=== PATIENT | female | born 1990 | race Caucasian/White ===

== ENCOUNTER 2020-08-19 18:11 | Emergency (ER) | payer SELFPAY ==
[~2020-08-19] VITALS: Ht 170.2 cm; Wt 65.9 kg
[2020-08-19 18:26] VITALS: BP 152/94
[2020-08-19] MEDS ORDERED: LIDOCAINE 1%/EPI 1:100,000 20 ML VIAL. SQ ONE (19:00)
[2020-08-19] MEDS ORDERED: 0.9 % SOD CHL for STERILE FIELD 10 ML DISP.SYRIN. ONE (19:13)
[2020-08-19] MEDS ORDERED: HYDROcodone/APAP 5/325MG 1 TAB TABLET ONE (19:14)
[2020-08-19] MEDS ORDERED: traMADol 50 MG TABLET ONE (19:19)
[2020-08-19] MEDS ORDERED: TRAM50TA PO (19:34)
[2020-08-19] MEDS ORDERED: CLIN150C14 PO (19:34)
--- NOTE | 2020-08-19 19:35 | ED.ADGEN ---
Past Medical History Past Medical History: Other Additional Past Medical Histor: Hidradenitis Suppurativa Past Surgical History: No Surgical History Smoking Status: Current Every Day Smoker Alcohol Use: None General Adult EDM: Chief Complaint: ABSCESS HPI: HPI: Patient is a 30 year old female who presents to the emergency department with complaints of an abscess to her right side for the last week. She also complains of a scabbed lesion to her chin. She reports that the area below her right axilla is hot and tender to touch. She states that it has been oozing some bloody pus today. She denies any fever, cough, nausea, vomiting, diarrhea, or shortness of breath. She currently rates her pain a 10 out of 10 on the pain scale, She denies any alleviating factors the pain is worse with palpation. Review of Systems: Review of Systems: Complete ROS is negative unless otherwise noted in HPI. Current Medications: Current Medications Medications (Trade) Dose Ordered Sig/Vijaya Start Time Stop Time Status Last Admin Dose Admin Acetaminophen/ Hydrocodone Bitart (Lortab 5/325) 1 tab 1X ONCE 08/19/20 19:45 08/19/20 19:46 DC Lidocaine/ Epinephrine (LIDOCAINE 1%-EPI 1:100,000 Multi-Dose) 20 ml 1X ONCE 08/19/20 19:00 08/19/20 19:01 DC 08/19/20 18:54 20 ML Sodium Chloride (NORMAL SALINE FLUSH for STERILE FIELD) 20 ml 1X ONCE 08/19/20 19:45 08/19/20 19:46 DC 08/19/20 19:41 20 ML Tramadol HCl (Ultram) 50 mg 1X ONCE 08/19/20 19:45 08/19/20 19:46 DC 08/19/20 19:40 50 MG Allergies: Allergies: Allergies Coded Allergies Type Severity Reaction Last Updated Verified hydrocodone Allergy Intermediate Hives/vomiting 08/19/20 Yes Physical Exam: PE: See Above Constitutional: Well developed, well nourished, no acute distress, non-toxic appearance. [] HENT: Normocephalic, atraumatic, bilateral external ears normal, nose normal. [] Eyes: PERRLA, EOMI, conjunctiva normal, no discharge. [] Neck: Normal range of motion, no stridor. [] Cardiovascular:Heart rate regular rhythm Lungs & Thorax: Respirations even and unlabored, no retractions, no respiratory distress Skin: Warm, dry; 9 cm tender area of erythema, and warmth noted below right axilla with 0.5 cm pustule centrally, consistent with abscess and cellulitis; honey crusted lesion to patient's chin consistent with impetigo. Extremities: No cyanosis, ROM intact, no edema. [] Neurologic: Alert and oriented X 3, no focal deficits noted. [] Psychologic: Affect normal, judgement normal, mood normal. [] Current Patient Data: Vital Signs: Vital Signs Date Time Temp Pulse Resp B/P (MAP) Pulse Ox O2 Delivery O2 Flow Rate FiO2 08/19/20 19:40 22 Room Air 08/19/20 18:26 98.4 94 152/94 (113) 100 98.4 EKG: EKG: [] Heart Score: Risk Factors: Risk Factors: DM, Current or recent (<one month) smoker, HTN, HLP, family history of CAD, obesity. Risk Scores: Score 0 - 3: 2.5% MACE over next 6 weeks - Discharge Home Score 4 - 6: 20.3% MACE over next 6 weeks - Admit for Clinical Observation Score 7 - 10: 72.7% MACE over next 6 weeks - Early Invasive Strategies Radiology/Procedures: Radiology/Procedures: Indication: abscess Procedure: The patient was positioned appropriately. Local anesthesia was 1% lidocaine with epi. An incision was then made over the apex of the lesion and moderate amount of bloody pus material was expressed. The drainage cavity was irrigated with 20 mL of NS and packed with iodoform gauze. The patients tetanus status was up-to-date. The patient tolerated the procedure well. Complications: none, minimal blood loss Course & Med Decision Making: Course & Med Decision Making Pertinent Labs and Imaging studies reviewed. (See chart for details) [] Dragon Disclaimer: Dragon Disclaimer: This electronic medical record was generated, in whole or in part, using a voice recognition dictation system. Departure Departure Impression: Primary Impression: Cutaneous abscess of chest wall Additional Impression: Impetigo Disposition: 01 DC HOME SELF CARE/HOMELESS Condition: STABLE Referrals: NO PCP (PCP) Patient Instructions: Abscess, Care After, Impetigo Additional Instructions: Fill the prescription(s) and use as directed. Keep fingernails trimmed short. Apply antibiotic ointment to your chin and under fingernails as instructed. You may also take tylenol or ibuprofen as needed for pain. Leave the Dressing that was placed in the ER in place for the next 24 hours, then change the dressing twice daily and apply antibiotic ointment as needed. Apply warm, moist packs to the area to help decrease discomfort. Follow up with your primary care doctor or return to the ER in 48 hours to have wound rechecked. Return to the ER sooner if your symptoms worsen. Scripts Tramadol Hcl (TRAMADOL HCL) 50 Mg Tablet 50 MG PO Q6HRS PRN for PAIN for 3 Days, #12 TAB 0 Refills Prov: NADINE PATTERSON APRN 08/19/20 Clindamycin Hcl (CLINDAMYCIN HCL) 150 Mg Capsule 300 MG PO QID for 7 Days, #56 CAP 0 Refills Prov: NADINE PATTERSON APRN 08/19/20 Problem Qualifiers NADINE PATTERSON APRN Aug 19, 2020 19:34
[2020-08-19] MEDS ORDERED: HYDROcodone/APAP 5/325MG 1 TAB TABLET PO ONE (19:45)
[2020-08-19] MEDS ORDERED: 0.9 % SOD CHL for STERILE FIELD 10 ML DISP.SYRIN. IV ONE (19:45)
[2020-08-19] MEDS ORDERED: traMADol 50 MG TABLET PO ONE (19:45)
== END 2020-08-19 19:44 | disposition home or self-care (01) ==
LOC: ER 18:11
DX: L02.213 Cutaneous abscess of chest wall (principal); L01.00 Impetigo, unspecified; F17.200 Nicotine dependence, unspecified, uncomplicated; Z88.5 Allergy status to narcotic agent
CPT/HCPCS: 10060; 96374; 99283; J3490